=== PATIENT | female | born 1960 | race Caucasian/White ===

== ENCOUNTER → 2016-09-03 | Outpatient (CLI) | payer BC ==
[~2016-09-03] MED LIST: AMBIEN10 MG PO; AMBIEN12.5 MG PO; DEPO-ESTRADIO5 MG/ML; DEPO-ESTRADIO5 MG/ML INJ; EFFEXOR37.5 MG; EFFEXOR50 MG PO; TOPAMAX PO; TOPAMAX200 MG; VITAMIN B-1000 MCG/1; VITAMIN B-1000 MCG/1 IJ; VITAMIN D400 UNI2
--- NOTE | ~2016-09-03 | CT134 ---
[facility] A Service of [facility] RADIOLOGY TEXT RESULTS PATIENT: LIZ AARON [facility] : 58 UNIT #: [id number] AGE: [address]: Armando Marin MD SEX: F ORDER DR: [id number] [place], [place] [address] [id number] O MR#: [id number] Acc #: [id number] NAME: LIZ AARON : 1960 SEX: F STUDY DATE/TIME: 09/03/2016 12:48 UNIT: [facility] ROOM: STUDY DESCRIPTION: CT Guide Attending Physician: Armando Marin M.D. Referring Physician: Armando Marin M.D. Ordering Physician: Armando Marin M.D. MEDICAL IMAGING REPORT This report is preliminary unless electronic signature is present EXAM CT-guided sacroiliac injection HISTORY Right-sided low back pain. TECHNIQUE Informed consent was obtained from the patient. Skin site was selected with CT guidance and marked, sterilely prepped and draped and locally anesthetized. Using CT guidance after local anesthesia, a 22-gauge needle was advanced into the right sacroiliac joint. Depo-Medrol and Marcaine were then instilled within the joint as requested, with 40 mg of Depo-Medrol in 2 mL of Marcaine. There are no complications and the patient tolerated the procedure well. IMPRESSION Successful CT-guided right sacroiliac joint injection. No immediate complications. Dictated by... Ernesto Juárez M.D. THIS IS AN ELECTRONICALLY VERIFIED REPORT Ernesto Juárez M.D. at 09/05/2016 2:18 PM TEV/pcl TD: 09/03/2016 21:35 JOB #: [id number] MEDICAL IMAGING REPORT Page 1 of 1 COPY
== END | disposition home or self-care (01) ==
LOC: CIVR 12:33
DX: M53.3 Sacrococcygeal disorders, not elsewhere classified (principal); G89.29 Other chronic pain; M70.61 Trochanteric bursitis, right hip; M70.62 Trochanteric bursitis, left hip
CPT/HCPCS: 77012; J1030

== ENCOUNTER → 2016-10-08 | Outpatient (CLI) | payer BC ==
--- NOTE | ~2016-10-08 | CT134 ---
[facility] A Service of [facility] RADIOLOGY TEXT RESULTS PATIENT: LIZ AARON LOCATION: [facility] : 58 UNIT #: [id number] AGE: [address]: Armando Marin MD SEX: F ORDER DR: [id number] [address] [address] [id number] O MR#: [id number] Acc #: [id number] NAME: LIZ AARON : 1960 SEX: F STUDY DATE/TIME: 10/08/2016 13:32 UNIT: [facility] ROOM: STUDY DESCRIPTION: CT Guide Attending Physician: Armando Marin M.D. Referring Physician: Armando Marin M.D. Ordering Physician: Armando Marin M.D. Primary Care Physician: Tommy Brown M.D. MEDICAL IMAGING REPORT This report is preliminary unless electronic signature is present EXAM CT-guided sacroiliac joint injection. DATE OF STUDY 10/08/2016 CLINICAL HISTORY Back pain previously responsive to sacroiliac joint injection. TECHNIQUE This CT exam was performed with one or more of the following radiation dose reduction techniques: automatic exposure control, adjustment of mA and/or kV according to patient size, and iterative reconstruction. PROCEDURE Informed consent was obtained. A skin site was selected with CT guidance and marked, sterilely prepped and draped and locally anesthetized. A 22-gauge spinal needle was advanced into the right sacroiliac joint. A total of 40 mg Depo-Medrol and 2 mL of lidocaine was injected and there are no complications. The patient tolerated the procedure well. IMPRESSION Successful CT-guided right sacroiliac joint injection with Depo-Medrol and lidocaine without complication. Dictated by... Ernesto Juárez M.D. THIS IS AN ELECTRONICALLY VERIFIED REPORT Ernesto Juárez M.D. at 10/09/2016 5:05 PM TEV/tmw [facility] A Service [facility] RADIOLOGY TEXT RESULTS PATIENT: LIZ AARNO LOCATION: [facility] #: [id number] : 58 UNIT #: [id number] AGE: [address]: Armando Marin MD SEX: F ORDER DR: TD: 10/08/2016 14:54 JOB #: [id number] MEDICAL IMAGING REPORT Page 1 of 1 COPY
== END | disposition home or self-care (01) ==
LOC: CIVR 12:01
DX: M53.3 Sacrococcygeal disorders, not elsewhere classified (principal); M25.552 Pain in left hip
CPT/HCPCS: 77012; J1030